=== PATIENT | female | born 1985 | race Caucasian/White ===

== ENCOUNTER 2018-05-13 04:48 | Emergency (ER) | payer OTHER ==
[~2018-05-13] VITALS: Ht 160 cm; Wt 95.3 kg
[2018-05-13 04:56] VITALS: BP 148/101
[2018-05-13] MEDS ORDERED: IBUPROFEN 800800 MG PO (05:13)
[2018-05-13] MEDS ORDERED: NORCO 5-325 TA1 EACH PO (05:13)
[2018-05-13] MEDS ORDERED: PENICILLIN V P500 MG PO (05:13)
== END 2018-05-13 05:15 | disposition home or self-care (01) ==
LOC: M.ERS 04:48
DX: K01.1 Impacted teeth (principal); Z90.49 Acquired absence of other specified parts of digestive tract; Z88.5 Allergy status to narcotic agent

== ENCOUNTER → 2021-09-24 | Outpatient (CLI) | payer OTHER ==
[~2021-09-24] MED LIST: BACTRIM DS TAB1 EACH PO; DOK PLUS TABLE1 EACH PO; FLOMAX0.4 MG PO; HYDROCODON-ACE1 EAC7 PO; IBUPROFEN 800800 MG PO; MACROBID 100 M100 M1 PO; NORCO 5-325 TA1 EACH PO; PENICILLIN V P500 MG PO; ULTRAM 50MG TAB50 MG PO
== END ==
LOC: M.ULTRA 08:00
PROVIDERS: ATTEND Nurse Practitioner Family
DX: L04.0 Acute lymphadenitis of face, head and neck (principal)